=== PATIENT | female | born 1965 | race Two or more races ===

== ENCOUNTER 2024-05-25 08:55 | Outpatient (CLI) | payer OTHER | END 2024-05-25 08:58 | disposition home or self-care (01) | LOC: NUCLEAR 08:55 | PROVIDERS: ATTEND Internal Medicine Hematology & Oncology | DX: C81.90 Hodgkin lymphoma, unspecified, unspecified site (principal) ==

== ENCOUNTER 2025-01-16 07:39 | Outpatient (CLI) | payer OTHER | END 2025-01-16 07:40 | disposition home or self-care (01) | LOC: NUCLEAR 07:39 | DX: C81.90 Hodgkin lymphoma, unspecified, unspecified site (principal) ==